=== PATIENT | male | born 2000 | race Caucasian/White ===

== ENCOUNTER 2023-05-12 13:50 | Emergency (ER) | payer OTHER, BC ==
[2023-05-12] MEDS ORDERED: Ibuprofen 800 MG TAB ONE (14:03)
== END 2023-05-12 15:06 | disposition home or self-care (01) ==
LOC: BURERS 13:50
DX: S62.336A Displaced fracture of neck of fifth metacarpal bone, right hand, initial encounter for closed fracture (principal); F17.220 Nicotine dependence, chewing tobacco, uncomplicated; W22.01XA Walked into wall, initial encounter; Y93.89 Activity, other specified
CPT/HCPCS: 29125